=== PATIENT | male | born 1950 | race Caucasian/White ===

== ENCOUNTER 2021-01-12 09:30 | Outpatient (RCR) | payer MEDICARE, SELFPAY ==
[2020-11-16 12:25] VITALS: PULSE 93
--- NOTE | 2020-11-22 14:28 | PCCPR ---
Robert on hold at this time due to blood pressure being out of allowed parameters during exercise. Spoke with Dr. Graves's office today and the doctor is increasing Diltiazem. Robert is going to try this increase in medicine for a week and then check back in with his primary physician. When blood pressure is under control he may return to pulmonary rehab.
--- NOTE | 2020-11-24 11:35 | PCCPR ---
MIGUEL due to elevated uncontrolled B/P Brock called to give us an update he did see his MD who increased his Diltazem dosage and made it and extended release.
--- NOTE | 2020-12-05 16:02 | PCCPR ---
Addendum entered by Bibi Jimenez RN 12/11/20 16:06: Brock called with and update. He has had a recent CAT scan of his lungs. A visit with his Cutter Grind Tool Technician he increased his )2 to continuous and from 1 liter to 2 liters. He has also had a change in his medication adding a new med he needs to diamond picker today. States his B/P 's are still running 180/90 at home and Entry Level Business Analyst office today. Asked he keep us informed next Friday to see how his b/p has been doing and make plan for return. Original Note: Spoke with Brock today, his Diltiazem was increased but he said that his blood pressures still run high (SBP >160)with activity. He is recording his blood pressures at home for his primary doctor and has an appointment with the maintenance machine repairer this Friday. He is going to call us Friday to discuss his plans for returning to pulmonary rehab.
--- NOTE | 2020-12-12 11:30 | PCCPR ---
spoke with Brock today, he saw his block paver Friday and was started on HCTZ in addition to his Diltiazem. His resting BP's are still elevated with SPP's >180. The plan is to take this new medication for 1 week with him recording BP's at home then call us on Friday in hopes that he may be able to return next week.
--- NOTE | 2020-12-26 09:05 | PCCPR ---
Spoke with Brock this morning, he would like to give it one more week on new medicine. Plans to return Tuesday 01/02
--- NOTE | 2021-01-16 09:21 | PCCPR ---
Leilani Gutiérrez called states he has been having a difficult breathing day with the heat. Hopes to resume on Friday.
--- NOTE | 2021-01-23 09:49 | PCCPR ---
Discharge Brock called states he wants to withdraw from Pulmonary rehab. States it is nothing to do with the program however is a hassle since he needs to get dressed and leave home for each session. States he has a seated piece of equipment at home to use and he does not need to leave home in the heat. States he belongs to a support group on the intranet for COPD and watches some exercise video's on [employer] as well. Asked if he would like for us to contact him for our [employer] with heart support group and he declined.
== END 2021-01-23 09:47 | disposition home or self-care (01) ==
LOC: ANHCPREHAB 09:30
PROVIDERS: PCP Internal Medicine; Visit Provider Student in an Organized Health Care Education/Training Program
DX: J44.9 Chronic obstructive pulmonary disease, unspecified (principal)
CPT/HCPCS: 97150; G0424